=== PATIENT | male | born 1960 | race Asian ===

== ENCOUNTER 2017-05-21 14:30 | Emergency (ER) | payer MEDICAID, OTHER ==
[~2017-05-21] VITALS: Ht 185.4 cm; Wt 95.7 kg
[~2017-05-21 14:30] MED LIST: ATENPOW10
[2017-05-21] MEDS ORDERED: NITROGLYCERIN 0.4 MG SL TAB SL ONE (14:45)
[2017-05-21] MEDS ORDERED: ASPirin 81 mg TAB PO ONE (14:45)
[2017-05-21 15:36] LABS: Basophils # (auto) 0.1 uL; Basophils % (auto) 0.7 % (0.0-2.0); Eosinophils # (auto) 0.3 uL; Eosinophils % (auto) 3.2 % (0.0-7.0); Hemoglobin 15.5 g/dL (13.5-17.5); Lymphocytes # (auto) 2.1 uL; Lymphocytes % (auto) 21.1 % (10.0-50.0); Mean Corpuscular Hemoglobin 31.8 pg (28.0-32.0); Mean Corpuscular Hgb Conc. 34.4 g/dL (32.0-36.0); Mean Corpuscular Volume 92.6 fL (80.0-100.0); Monocytes # (auto) 0.4 uL; Monocytes % (auto) 4.4 % (0.0-12.0); Neutrophils % (auto) 70.6 % (37.0-80.0); Nucleated Red Blood Cells % 0.1 %; Platelet Count (auto) 213 10^3/uL (140-450); Red Blood Cells 4.86 10^6/uL (4.5-5.90); Red Cell Distribution Width 13.2 % (11.8-14.3); White Blood Cell 9.9 10^3/uL (4.4-10.8)
[2017-05-21 16:30] VITALS: BP 154/96
== END 2017-05-21 18:17 | disposition home or self-care (01) ==
LOC: ER 14:30
DX: D35.2 Benign neoplasm of pituitary gland (principal); R07.89 Other chest pain; F17.210 Nicotine dependence, cigarettes, uncomplicated; I10 Essential (primary) hypertension; Z90.49 Acquired absence of other specified parts of digestive tract
CPT/HCPCS: 36415; 70450; 70480; 84484; 85025; 93005

== ENCOUNTER 2022-09-28 04:42 | Inpatient (IN) | payer MEDICARE, MEDICAID ==
[~2022-09-28] VITALS: Ht 185.4 cm; Wt 86.3 kg
[2022-09-28] MEDS: SODIUM CHLORIDE 0.9% 1,000 ML IV SCH ×3 (02:50→20:00)
[2022-09-28 05:35] LABS: Albumin 3.4 g/dL (3.4-5.0); BUN/Creatinine Ratio 9.7 (10.0-20.0); Calcium 9.6 mg/dL (8.5-10.1)
[2022-09-28 05:38] LABS: Bilirubin, Total 1.2 mg/dL (0.2-1.0); Total Protein 7.2 g/dL (6.4-8.2)
[2022-09-28 05:39] LABS: Lactic Acid w/Reflex 4.6 mmol/L (0.4-2.0)
[2022-09-28] MEDS ORDERED: SODIUM CHLORIDE 0.9% 2,400 ML IV ONE (05:45)
[2022-09-28 06:58] LABS: Basophils # (auto) 0.1 10 ^3/uL (0-0.2); Basophils % (auto) 0.5 % (0.0-2.0); Eosinophils # (auto) 0 10 ^3/uL (0-0.8); Eosinophils % (auto) 0.1 % (0.0-7.0); Hematocrit 41.7 % (41.0-53.0); Hemoglobin 14.7 g/dL (13.5-17.5); Lymphocytes # (auto) 1.3 10 ^3/uL (0.4-5.4); Lymphocytes % (auto) 13.3 % (10.0-50.0); Mean Corpuscular Hemoglobin 32.4 pg (28.0-32.0); Mean Corpuscular Hgb Conc. 35.1 g/dL (32.0-36.0); Mean Corpuscular Volume 92.1 fL (80.0-100.0); Monocytes # (auto) 0.6 10 ^3/uL (0-1.3); Monocytes % (auto) 6.4 % (0.0-12.0); Neutrophils # (auto) 7.9 10 ^3/uL (1.6-8.6); Neutrophils % (auto) 79.7 % (37.0-80.0); Nucleated Red Blood Cells % 0.1 %; Red Blood Cells 4.53 10^6/uL (4.5-5.90); White Blood Cell 9.9 10^3/uL (4.4-10.8)
[2022-09-28] MEDS ORDERED: PIPERACILLIN-TAZOB 3.375GM 100 ML IV ONE (07:00)
[2022-09-28 07:26] LABS: Lipase 240 U/L (73-393)
[2022-09-28 09:30] LABS: Cholesterol 142 mg/dL (< 200); HDL Cholesterol 20 mg/dL (40-59); LDL Cholesterol 106 mg/dL (< 100); Triglycerides 127 mg/dL (< 150)
[2022-09-28] MEDS ORDERED: ENOXAPARIN SOD 100 MG/1 ML SYRINGE SC ONE (10:00)
[2022-09-28] MEDS ORDERED: DEXTROSE (50%) 50ML SYRG IV PRN (10:00)
[2022-09-28] MEDS ORDERED: HYDROcodone-ACET 5/325MG TAB PO PRN (10:00)
[2022-09-28] MEDS ORDERED: ACETAMINOPHEN 325 MG TAB PO PRN (10:00)
[2022-09-28] MEDS ORDERED: MORPHINE SULFATE INJ 2 MG/ml SYRG IV PRN (10:00)
[2022-09-28] MEDS ORDERED: ASPirin 325 MG TAB PO ONE (10:15)
[2022-09-28] MEDS ORDERED: PANTOPRAZOLE 40 MG/10 ML VIAL INJ IV ONE (10:30)
[2022-09-28 11:01] LABS: INR 1.13 (0.9-1.15); Partial Thromboplastin Time 34.3 sec (24.6-33.4)
[2022-09-28] MEDS: CEFEPIME 1GM/ 50ML 50 ML IV SCH ×2 (11:01→22:03)
[2022-09-28] MEDS: InsuLIN REG 1unit/0.01ml Soln (100units/ml) SC SCH ×3 (11:55→22:05)
[2022-09-28] MEDS: ACCU-CHEK COMFORT CURVE STRIP VI SCH ×3 (12:01→22:03)
[2022-09-28 12:41] LABS: Creatine Kinase IFCC 4110 U/L (39-308)
[2022-09-28 16:04] VITALS: BP 135/72
[2022-09-28 16:50] VITALS: BP 135/72
[2022-09-28 22:00] VITALS: BP 129/69
[2022-09-28] MEDS ORDERED: LORazepam 2MG/ML-1ML VIAL IV PRN (22:00)
[2022-09-29 05:00] VITALS: BP 137/76
[2022-09-29 06:07] LABS: Calcium 8.3 mg/dL (8.5-10.1); Potassium 4.2 mmol/L (3.5-5.1)
[2022-09-29 06:11] LABS: BUN/Creatinine Ratio 10.9 (10.0-20.0); Bilirubin, Total 0.9 mg/dL (0.2-1.0); Total Protein 6.3 g/dL (6.4-8.2)
[2022-09-29] MEDS: InsuLIN REG 1unit/0.01ml Soln (100units/ml) SC SCH ×4 (06:38→21:20)
[2022-09-29] MEDS: SODIUM CHLORIDE 0.9% 1,000 ML IV SCH ×3 (06:38→19:51)
[2022-09-29] MEDS: ACCU-CHEK COMFORT CURVE STRIP VI SCH ×4 (06:38→17:54)
[2022-09-29 06:55] LABS: Basophils # (auto) 0.1 10 ^3/uL (0-0.2); Basophils % (auto) 0.9 % (0.0-2.0); Eosinophils # (auto) 0.2 10 ^3/uL (0-0.8); Eosinophils % (auto) 2.6 % (0.0-7.0); Hematocrit 36.2 % (41.0-53.0); Hemoglobin 12.6 g/dL (13.5-17.5); Lymphocytes # (auto) 2.1 10 ^3/uL (0.4-5.4); Lymphocytes % (auto) 31.4 % (10.0-50.0); Mean Corpuscular Hemoglobin 32.2 pg (28.0-32.0); Mean Corpuscular Hgb Conc. 34.8 g/dL (32.0-36.0); Mean Corpuscular Volume 92.4 fL (80.0-100.0); Monocytes # (auto) 0.7 10 ^3/uL (0-1.3); Monocytes % (auto) 10.2 % (0.0-12.0); Neutrophils # (auto) 3.6 10 ^3/uL (1.6-8.6); Neutrophils % (auto) 54.9 % (37.0-80.0); Nucleated Red Blood Cells % 0.2 %; Red Blood Cells 3.91 10^6/uL (4.5-5.90); Red Cell Distribution Width 13.2 % (11.8-14.3); White Blood Cell 6.6 10^3/uL (4.4-10.8)
[2022-09-29 09:00] VITALS: BP 141/77
[2022-09-29] MEDS: PANTOPRAZOLE 40 MG/10 ML VIAL INJ IV SCH (09:34)
[2022-09-29] MEDS: CEFEPIME 1GM/ 50ML 50 ML IV SCH ×2 (09:34→21:14)
[2022-09-29] MEDS: ASPirin 81 mg TAB PO SCH (09:34)
[2022-09-29] MEDS: ENOXAPARIN SOD 40 MG/0.4 ML SYRINGE SC SCH (09:35)
[2022-09-29 11:52] LABS: Urine Bacteria FEW /hpf (None Seen); Urine Blood 3+ /uL (Negative); Urine Mucus FEW (None Seen); Urine Specific Gravity 1.011 (1.001-1.035); Urine WBC 1 /hpf (0 - 3)
[2022-09-29 12:22] LABS: Alcohol, Urine < 3.0 mg/dL (0-10); Amphetamine Screen, Urine NEGATIVE (NEGATIVE); Barbiturate Scree,Urine NEGATIVE (NEGATIVE); Benzodiazephine Screen, Urine NEGATIVE (NEGATIVE); Cannabinoid Screen, Urine NEGATIVE (NEGATIVE); Cocaine Screen, Urine NEGATIVE (NEGATIVE); Opiate Scree,Urine NEGATIVE (NEGATIVE); Phencyclidine Screen, Urine NEGATIVE (NEGATIVE); Protein, Urine 37.8 mg/dL (0.0-11.9)
[2022-09-29 13:00] VITALS: BP 149/78
[2022-09-29] MEDS ORDERED: CLINDAMYCIN 300MG IV 50 ML IV SCH (14:00)
[2022-09-29] MEDS: CLINDAMYCIN HCL 150 MG CAP PO SCH ×2 (14:30→21:16)
[2022-09-29 17:00] VITALS: BP 119/63
[2022-09-29 22:00] VITALS: BP 143/79
[2022-09-30] MEDS: hydrALAZINE HCL 20 MG/ML VL IV PRN (04:16)
[2022-09-30 05:00] VITALS: BP 166/78
[2022-09-30] MEDS: CLINDAMYCIN HCL 150 MG CAP PO SCH ×3 (05:05→21:33)
[2022-09-30 05:20] VITALS: BP 148/84
[2022-09-30] MEDS: InsuLIN REG 1unit/0.01ml Soln (100units/ml) SC SCH ×4 (06:00→21:58)
[2022-09-30] MEDS: ACCU-CHEK COMFORT CURVE STRIP VI SCH ×4 (06:00→21:33)
[2022-09-30 06:09] LABS: Basophils # (auto) 0.1 10 ^3/uL (0-0.2); Basophils % (auto) 0.9 % (0.0-2.0); Eosinophils # (auto) 0.2 10 ^3/uL (0-0.8); Eosinophils % (auto) 3.6 % (0.0-7.0); Hematocrit 35.6 % (41.0-53.0); Hemoglobin 12.6 g/dL (13.5-17.5); Lymphocytes # (auto) 2.1 10 ^3/uL (0.4-5.4); Lymphocytes % (auto) 38.8 % (10.0-50.0); Mean Corpuscular Hemoglobin 32.4 pg (28.0-32.0); Mean Corpuscular Hgb Conc. 35.4 g/dL (32.0-36.0); Mean Corpuscular Volume 91.5 fL (80.0-100.0); Monocytes # (auto) 0.4 10 ^3/uL (0-1.3); Monocytes % (auto) 7.4 % (0.0-12.0); Neutrophils # (auto) 2.7 10 ^3/uL (1.6-8.6); Neutrophils % (auto) 49.3 % (37.0-80.0); Nucleated Red Blood Cells % 0.1 %; Red Blood Cells 3.89 10^6/uL (4.5-5.90); White Blood Cell 5.5 10^3/uL (4.4-10.8)
[2022-09-30 06:25] LABS: Potassium 4.3 mmol/L (3.5-5.1)
[2022-09-30 06:31] LABS: BUN/Creatinine Ratio 13.4 (10.0-20.0); Bilirubin, Total 0.7 mg/dL (0.2-1.0); Calcium 8.5 mg/dL (8.5-10.1); Magnesium 1.9 mg/dL (1.6-2.6); Phosphorus 2.8 mg/dL (2.5-4.90); Total Protein 6.9 g/dL (6.4-8.2)
[2022-09-30] MEDS: SODIUM CHLORIDE 0.9% 1,000 ML IV SCH ×2 (06:54→14:00)
[2022-09-30 09:00] VITALS: BP 146/80
[2022-09-30 09:54] LABS: Hepatitis B Surface Antibody Negative (Negative)
[2022-09-30 10:32] LABS: Hepatitis A Total Antibody Negative (Negative)
[2022-09-30 10:45] LABS: Folate (Folic Acid) 9.48 ng/mL (5.38-24)
[2022-09-30] MEDS: CEFEPIME 1GM/ 50ML 50 ML IV SCH ×2 (10:48→21:33)
[2022-09-30] MEDS: PANTOPRAZOLE 40 MG/10 ML VIAL INJ IV SCH (10:48)
[2022-09-30] MEDS: ASPirin 81 mg TAB PO SCH (10:48)
[2022-09-30] MEDS: ENOXAPARIN SOD 40 MG/0.4 ML SYRINGE SC SCH (10:48)
[2022-09-30 13:00] VITALS: BP 147/86
[2022-09-30 13:32] LABS: Hepatitis C Antibody Negative (Negative)
[2022-09-30] MEDS ORDERED: ERGOCALCIFEROL 50,000 UNIT(1.25MG) CAP PO SCH (16:00)
[2022-09-30 17:00] VITALS: BP 139/86
[2022-09-30 22:00] VITALS: BP 143/76
[2022-10-01] MEDS: hydrALAZINE HCL 20 MG/ML VL IV PRN ×2 (05:10→18:42)
[2022-10-01] MEDS: CLINDAMYCIN HCL 150 MG CAP PO SCH ×3 (05:10→21:25)
[2022-10-01 05:59] LABS: Potassium 4.1 mmol/L (3.5-5.1)
[2022-10-01 06:11] LABS: Albumin 3.2 g/dL (3.4-5.0); BUN/Creatinine Ratio 15.1 (10.0-20.0); Bilirubin, Total 0.6 mg/dL (0.2-1.0); Calcium 8.8 mg/dL (8.5-10.1); Total Protein 7.1 g/dL (6.4-8.2)
[2022-10-01 06:15] VITALS: BP 145/64
[2022-10-01] MEDS: InsuLIN REG 1unit/0.01ml Soln (100units/ml) SC SCH ×4 (06:20→21:34)
[2022-10-01] MEDS: ACCU-CHEK COMFORT CURVE STRIP VI SCH ×4 (06:20→21:35)
[2022-10-01] MEDS: ASPirin 81 mg TAB PO SCH (09:52)
[2022-10-01] MEDS: LOSARTAN POTASSIUM 50 MG TAB PO SCH (09:53)
[2022-10-01] MEDS: PANTOPRAZOLE 40 MG/10 ML VIAL INJ IV SCH (09:53)
[2022-10-01 09:54] VITALS: BP 163/81
[2022-10-01] MEDS: ENOXAPARIN SOD 40 MG/0.4 ML SYRINGE SC SCH (09:54)
[2022-10-01] MEDS: CEFEPIME 1GM/ 50ML 50 ML IV SCH ×2 (09:54→21:24)
[2022-10-01] MEDS ORDERED: GADOTERATE MEG 10 MMOL/20ml INJ (0.5MMOL/ml) IV ONE (10:43)
[2022-10-01 17:11] VITALS: BP 153/83
[2022-10-01 22:00] VITALS: BP 155/80
[2022-10-01 23:25] VITALS: BP 143/76
[2022-10-02 05:00] VITALS: BP 143/85
[2022-10-02] MEDS: CLINDAMYCIN HCL 150 MG CAP PO SCH ×3 (05:26→21:58)
[2022-10-02] MEDS: CEFEPIME 1GM/ 50ML 50 ML IV SCH (05:27)
[2022-10-02 05:39] LABS: Potassium 4.2 mmol/L (3.5-5.1)
[2022-10-02 05:45] LABS: Albumin 3.4 g/dL (3.4-5.0); Calcium 8.9 mg/dL (8.5-10.1); Total Protein 7.3 g/dL (6.4-8.2)
[2022-10-02] MEDS: ACCU-CHEK COMFORT CURVE STRIP VI SCH ×4 (06:37→21:58)
[2022-10-02] MEDS: InsuLIN REG 1unit/0.01ml Soln (100units/ml) SC SCH ×4 (06:37→22:00)
[2022-10-02 08:57] VITALS: BP 146/80
[2022-10-02] MEDS: PANTOPRAZOLE 40 MG/10 ML VIAL INJ IV SCH (10:40)
[2022-10-02] MEDS: ASPirin 81 mg TAB PO SCH (10:40)
[2022-10-02] MEDS: LOSARTAN POTASSIUM 50 MG TAB PO SCH (10:41)
[2022-10-02] MEDS: ENOXAPARIN SOD 40 MG/0.4 ML SYRINGE SC SCH (10:41)
[2022-10-02 13:00] VITALS: BP 160/82
[2022-10-02 16:34] VITALS: BP 138/88
[2022-10-02 20:00] VITALS: BP 149/78
[2022-10-02 22:00] VITALS: BP 149/78
[2022-10-03 05:00] VITALS: BP 153/77
[2022-10-03 05:06] LABS: Basophils # (auto) 0.1 10 ^3/uL (0-0.2); Basophils % (auto) 1.1 % (0.0-2.0); Eosinophils # (auto) 0.3 10 ^3/uL (0-0.8); Eosinophils % (auto) 4.7 % (0.0-7.0); Hematocrit 39.2 % (41.0-53.0); Hemoglobin 13.9 g/dL (13.5-17.5); Lymphocytes # (auto) 2.4 10 ^3/uL (0.4-5.4); Lymphocytes % (auto) 35.9 % (10.0-50.0); Mean Corpuscular Hemoglobin 31.8 pg (28.0-32.0); Mean Corpuscular Hgb Conc. 35.4 g/dL (32.0-36.0); Mean Corpuscular Volume 89.8 fL (80.0-100.0); Monocytes # (auto) 0.5 10 ^3/uL (0-1.3); Monocytes % (auto) 6.9 % (0.0-12.0); Neutrophils # (auto) 3.5 10 ^3/uL (1.6-8.6); Neutrophils % (auto) 51.4 % (37.0-80.0); Nucleated Red Blood Cells % 0.1 %; Red Blood Cells 4.37 10^6/uL (4.5-5.90); White Blood Cell 6.7 10^3/uL (4.4-10.8)
[2022-10-03] MEDS: CLINDAMYCIN HCL 150 MG CAP PO SCH ×2 (05:17→14:25)
[2022-10-03 05:28] LABS: Potassium 4.5 mmol/L (3.5-5.1)
[2022-10-03 05:36] LABS: Albumin 3.5 g/dL (3.4-5.0); BUN/Creatinine Ratio 18.2 (10.0-20.0); Bilirubin, Total 0.7 mg/dL (0.2-1.0); Calcium 8.9 mg/dL (8.5-10.1); Total Protein 7.7 g/dL (6.4-8.2)
[2022-10-03] MEDS: InsuLIN REG 1unit/0.01ml Soln (100units/ml) SC SCH ×2 (06:11→11:30)
[2022-10-03] MEDS: ACCU-CHEK COMFORT CURVE STRIP VI SCH ×2 (06:11→11:30)
[2022-10-03 09:00] VITALS: BP 151/83
[2022-10-03] MEDS: ASPirin 81 mg TAB PO SCH (09:50)
[2022-10-03] MEDS: LOSARTAN POTASSIUM 50 MG TAB PO SCH (09:51)
[2022-10-03] MEDS ORDERED: levoFLOXacin 500 MG TAB PO SCH (10:00)
[2022-10-03] MEDS ORDERED: PANTOPRAZOLE 40 MG TAB PO SCH (10:00)
[2022-10-03] MEDS ORDERED: TRAM50TA2 PO (10:28)
[2022-10-03] MEDS ORDERED: LEVO500T91 PO (10:28)
[2022-10-03] MEDS ORDERED: CLIN150C18 PO (10:28)
[2022-10-03] MEDS ORDERED: LOSA50TA46 PO (10:28)
[2022-10-03 12:07] VITALS: BP 151/83
[2022-10-03 13:00] VITALS: BP 149/84
== END 2022-10-03 16:00 | disposition home or self-care (01) | DRG 871 ==
LOC: ER 04:42 → EDBD 04:42 → TELE 10:12 → TELE-CENTR 15:30 → CENTRAL 10-01 14:18
PROVIDERS: ADMIT Registered Nurse; ATTEND Internal Medicine
DX: A41.9 Sepsis, unspecified organism (principal); I21.A1 Myocardial infarction type 2; N17.0 Acute kidney failure with tubular necrosis; N30.00 Acute cystitis without hematuria; E11.22 Type 2 diabetes mellitus with diabetic chronic kidney disease; E55.9 Vitamin D deficiency, unspecified; K74.60 Unspecified cirrhosis of liver; W18.39XA Other fall on same level, initial encounter; K04.7 Periapical abscess without sinus; I12.9 Hypertensive chronic kidney disease with stage 1 through stage 4 chronic kidney disease, or unspecified chronic kidney disease; N18.9 Chronic kidney disease, unspecified; M51.36 Other intervertebral disc degeneration, lumbar region; Z90.89 Acquired absence of other organs; Z90.49 Acquired absence of other specified parts of digestive tract; Y93.89 Activity, other specified; Y99.8 Other external cause status; Y92.098 Other place in other non-institutional residence as the place of occurrence of the external cause; Z80.1 Family history of malignant neoplasm of trachea, bronchus and lung; Z83.3 Family history of diabetes mellitus; Z79.899 Other long term (current) drug therapy
CPT/HCPCS: 36415; 70450; 70486; 70551; 71045; 72158; 76705; 80053; 80061; 80307; 80320; 81001; 82043; 82306; 82550; 82570; 82607; 82746; 82962; 82977; 83036; 83605; 83690; 83735; 83880; 83935; 84100; 84156; 84300; 84443; 84484; 85025; 85379; 85610; 85730; 86704; 86706; 86708; 86803; 87040; 87086; 87340; 93005; 93306; 93970; 96365; 96372; 96375; 97110; 97116; 97163; 97530; C9113; G0378; J1815; J2543